=== PATIENT | male | born 1965 | race Caucasian/White ===

== ENCOUNTER 2025-07-31 20:06 | Emergency (ER) | payer BC, SELFPAY ==
[2025-07-31] VITALS (10 sets, daily range): BP systolic 190–256; BP diastolic 96–127; PULSE 67–86; RESP 16–17; TEMP 36.6–36.8; O2SAT 94–98; BMI 32.4
--- NOTE | 2025-07-31 20:18 | EKG12_ITS ---
Test Reason : DYSRHYTHMIA Blood Pressure : */* mmHG Vent. Rate : 75 BPM Atrial Rate : 75 BPM P-R Int : 144 ms QRS Dur : 92 ms QT Int : 396 ms P-R-T Axes : 37 5 74 degrees QTcB Int : 442 ms Normal sinus rhythm Normal ECG Confirmed by ANDRAE CUETO, BETINA ([id number]), map editor LESLYE CALIX ([id number]) on 08/01/2025 9:20:04 AM Referred By: NGA Confirmed By: BETINA ABEBE MD
--- NOTE | 2025-07-31 20:18 | CT_ITS ---
PROCEDURE: CT BRAIN/HEAD WITHOUT CONTRAST 07/31/2025 REASON FOR EXAM: CONFUSION, HYPERTENSION TECHNIQUE: Procedure Code: CTBR Modality: CT Procedure: BRAIN/HEAD WITHOUT CONTRAST Coronal and Sagittal reconstruction series were provided. One or more dose reduction techniques were used (e.g., Automated exposure control, adjustment of the mA and/or kV according to patient size, use of iterative reconstruction technique. RADIATION DOSE SUMMARY: CTDlvol: 44.99 mGy DLP: 846.73 mGycm COMPARISON: None available. FINDINGS: Small area of acute intracranial hemorrhage within the right basal ganglia region, measuring approximately 24 x 15 x 9 mm. No substantial parenchymal edema or significant mass-effect. No evidence of acute intracranial hemorrhage or extra-axial collection elsewhere. No evidence of acute large territorial infarct. Moderate-advanced chronic microangiopathic changes throughout the supratentorial white matter, and chronic infarct involving the inferior left cerebellar hemisphere. Atherosclerotic vascular calcifications. Grossly unremarkable orbits. Intact skull base and calvarium. Well-aerated paranasal sinuses and bilateral mastoid air cells. 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 No significant mass-effect. Moderate-advanced chronic microangiopathic changes in the supratentorial white matter, and old left cerebellar infarct. No acute appearing territorial infarct on this exam. Findings communicated with provider Dilan Bahena 07/31/2025 at 7:45 p.m. 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 Reading Location: [id number]
--- NOTE | 2025-07-31 20:20 | EX.ED.DYSGE1 ---
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 He states that he has been a lightheaded over the last few days and has not felt quite right. He denies any chest pain or shortness of breath, no nausea or vomiting, no headache. He was given a speech this evening, and medics were called because he appeared very confused and not quite the same. He was having problems concentrating and speaking. He was noted to have severely elevated blood pressure above 200 systolic. He denies any history of hypertension, no exacerbating or alleviating factors. No headache. [facility] Medical History History of ear infection Home Medications Medication Instructions Recorded Last Taken Type NK 07/31/25 Unknown History Allergy/AdvReac Type Severity Reaction Status Date / Time Penicillins Allergy Hives Verified 07/31/25 20:11 Social History Smoking Status: Never smoker ROS ROS ED ROS Narrative Review of systems positive for lightheadedness, and confusion with problems concentrating. Denies chest pain, shortness of breath, headache, leg swelling, or any other symptoms. EXAM Physical Exam Narrative Exam Narrative: Afebrile. Vital signs noted. Blood pressures of 256/120 and 250/127. Cardiovascular examination regular rate and rhythm. Lungs clear to auscultation bilaterally. Abdomen is soft and nontender with positive bowel sounds, no guarding or rebound. Neurological examination is nonfocal, nonlateralizing. Awake, alert, oriented x 3. No pronator drift. Moves all extremities. No visual deficit. S Van negative. NIH stroke scale 0. Const Vital Signs: 07/31/25 20:07 07/31/25 20:08 07/31/25 20:38 Temperature 98.3 F Temperature Source Oral Pulse Rate 86 67 Respiratory Rate 16 16 Blood Pressure 256/120 H 250/127 H 228/110 H Blood Pressure Mean 165 168 149 Blood Pressure Source Pulse Ox 98 96 Oxygen Delivery Method Room Air Room Air 07/31/25 20:46 07/31/25 20:53 07/31/25 21:00 Temperature Temperature Source Pulse Rate 82 69 Respiratory Rate 17 16 Blood Pressure 228/110 H 210/102 H Blood Pressure Mean 149 138 Blood Pressure Source Pulse Ox 97 94 94 Oxygen Delivery Method Room Air Room Air Room Air 07/31/25 21:08 07/31/25 21:11 Temperature Temperature Source Pulse Rate 70 68 Respiratory Rate 16 16 Blood Pressure 190/96 H 190/96 H Blood Pressure Mean 127 127 Blood Pressure Source Monitor Pulse Ox 95 95 Oxygen Delivery Method Room Air Room Air MDM MDM MDM Narrative Medical decision making narrative: The differential diagnosis includes but not limited to hypertensive urgency versus emergency versus stroke. However given his NIH stroke scale of 0, it was not felt that stroke team needed to be initiated, and it was not initiated by EMS as well. I have low suspicion for ischemic stroke based on his clinical presentation. Also in the differential is intracranial hemorrhage from hypertension. However, with his systolic being above 250, concern is for hypertensive emergency causing his confusion and lightheadedness and possible hemorrhage. CT of the brain will be obtained as well as basic laboratory work and EKG including troponins. He was started on a Cardene drip because of the excessively high blood pressure. He was told that he will require observation versus admission for this depending on blood pressure control. EKG obtained and interpreted by myself independently as normal sinus rhythm at 75 bpm without ectopy or acute ST changes. No STEMI. I reviewed his laboratory work and he has normal white count of 6.7 with hemoglobin 15.7, hematocrit 46.9, platelet count normal at 265. BMP shows BUN of 27 with creatinine normal at 1.18, normal sodium and potassium. LFTs are grossly unremarkable. High-sensitivity troponin 14. On review of the CT of the brain, I see an intraparenchymal hemorrhage on the right. I received a call from the radiologist regarding this. There is hypertensive intraparenchymal hemorrhage in the basal ganglia. Upon repeat examination, patient had told his that his right leg felt heavy. However, he still has full range of motion of his right lower extremity. Given his intraparenchymal hypertensive bleeding, patient request to be transferred to [facility]. I discussed the patient with critical care transfer line. Goal for systolic blood pressure per protocol is 140 or below. I discussed the patient with the [facility] transfer line and was triage through [facility] neurosurgery initially. They state that the patient is able to go to the closest hospital and his preference. I then discussed the patient with the critical care transport line and [facility] Provider. He has been accepted by Dr. Nikolai Marvin in the critical care unit. Patient's neurological examination remains nonfocal and nonlateralizing. As the patient has been accepted, critical care transport through [facility] Is an hour out. There is a local squad available here. They are not activating transportation via air secondary to weather conditions. At this point in time, patient will be transferred in guarded condition. History & Record Review Discussion w/independent historian: EMS personnel and Patient Additional record(s) reviewed:: Prior ED visit (Last ED visit 2014) Lab Data Attestation: I reviewed the patient's lab results. Labs: Laboratory Results - last 24 hr 07/31/25 07/31/25 20:15 20:18 WBC 6.7 RBC 5.34 Hgb 15.7 Hct 46.9 MCV 87.8 MCH 29.4 MCHC 33.5 RDW Std Deviation 41.5 RDW Coeff of Cecilia 13.0 Plt Count 265 MPV 9.8 Immature Gran % (Auto) 0.100 Neut % (Auto) 63.1 Lymph % (Auto) 25.2 [place] % (Auto) 10.3 H Eos % (Auto) 0.4 Baso % (Auto) 0.9 Absolute Neuts (auto) 4.2 Absolute Lymphs (auto) 1.68 Nucleated RBC % 0 Sodium 140 Potassium 3.8 Chloride 102 Carbon Dioxide 25.3 Anion Gap 12 BUN 27 H Creatinine 1.18 Estim Creat Clear Calc 77.02 Est GFR (MDRD) Non-Af 72 BUN/Creatinine Ratio 22.6 H Glucose 100 H Calcium 9.4 Total Bilirubin 0.67 AST 25 ALT 26 Alkaline Phosphatase 56 Troponin T High Sens 14 Total Protein 8.0 Albumin 4.6 Globulin 3.4 Albumin/Globulin Ratio 1.4 Radiography Diagnostic Testing: Clinical Impression(s) from Imaging Studies Brain CT 07/31/25 20:18 IMPRESSION: Small acute intracranial hemorrhage within the right basal ganglia, 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 No significant mass-effect. Moderate-advanced chronic microangiopathic changes in the supratentorial white matter, and old left cerebellar infarct. No acute appearing territorial infarct on this exam. Findings communicated with provider Dilan Bahena 07/31/2025 at 7:45 p.m. 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 Reading Location: [id number] Management Discussion w/another healthcare provider: Supervisor Aircraft Cleaning ([facility] neurosurgery, [facility] Critical care provider) and Radiologist Critical Care Time Critical Care Time: Yes Critical care time (excluding procedures): 30-74 minutes (32), Including time spent:, Discussing w/Patient &/or Family/Junior Accounting Clerk, Discussing w/Consultants, Arranging Admission or Transfer and Performing Direct Patient Care at Bedside Discharge Plan Triage Chief Complaint: Neuro S/Sx ED Provider: Dilan Bahena Dx/Rx/DC Orders Clinical Impression: Nontraumatic intraparenchymal hemorrhage of brain, Hypertensive emergency, Confusion Prescriptions: No Action NK Primary Care Provider: Care Physician,No Primary Referrals: Care Physician,No Primary [Primary Care Provider, Medical] Print Language: [place]
[2025-07-31 20:39] LABS: Hematocrit 46.9 % (40-54); Hemoglobin 15.7 g/dL (13.0-16.5); Immature Granulocytes Count 0.010 X10^3/uL (0.0-0.0); Mean Corp Hgb Conc 33.5 g/dL (32-36); Mean Corpuscular Volume 87.8 fL (80-94); Mean Platelet Vol. 9.8 fl (6.2-12.0); NRBC Flagged by Analyzer 0 % (0-5); Platelet Count 265 K/mm3 (150-450); RBC Distribution Width CV 13.0 % (11.6-14.6); RBC Distribution Width SD 41.5 fl (35.1-43.9); Red Blood Count 5.34 M/mm3 (4.6-6.2); White Blood Count 6.7 K/mm3 (4.4-11.0)
--- OUTSIDE RECORDS SUMMARY | 2025-07-31 20:44 | XMS RPT_ITS | CCD ---
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 Name Role Phone Leeanne Hoang LPN Unavailable Unavailab desire VALENZUELA, Hugo Keys Unavailable Satinder Rizvi Attending Unavailable Care Physician, No Primary Referring Unava ilable Care Physician, No Primary Primary Care Unava ilable Satinder Rizvi Attending Unavailable Care Physician, No Primary Referring Unava ilable Care Physician, No Primary Primary Care Unava ilable Assessment, Health Risk Attending Unavaila ble Care Physician, No Primary Primary Care Unava ilable Assessment, Health Risk Referring Unavaila ble Satinder Rizvi Attending Unavailable Care Physician, No Primary Referring Unava ilable Care Physician, No Primary Primary Care Unava ilable Hugo Oliveros Attending Unavailable Care Physician, No Primary Referring Unava ilable Care Physician, No Primary Primary Care Unava ilable Satinder Rizvi Attending Unavailable Care Physician, No Primary Referring Unava ilable Care Physician, No Primary Primary Care Unava ilable Allergies Allergy Classification Reported Allergen(s) Allergy Type Date of Onset Reaction(s) Facility (2 sources) penicillin Drug Allergy 01-26-2011 rash [facility] Work Phone: Problems Problem Classification Problem Date Documented Date Episodic/Chronic Administrative/social admission (2 sources) Encounter for other administrative examinations; Translations: [Encounter for other administrative examinations] Onset: 10-13-2021 Episodic Disorders of lipid metabolism (2 sources) Hyperlipidemia; Translations: [Hyperlipidemia, unspecified] Onset: 05-10-2012 05-10-2012 Chronic Essential hypertension (2 sources) Labile hypertension; Translations: [Elevated blood-pressure reading, without diagnosis of hypertension] Onset: 05-10-2012 05-10-2012 Chronic Unclassified (2 sources) Adult health examination ; Translations: [Encounter for general adult medical examination without abnormal findings] Onset: 07-05-2017 07-05-2017 Unclassified (2 sources) General examination of patient ; Translations: [Encounter for other general examination] Onset: 05-10-2012 05-10-2012 Results Test Name Value Interpretation Reference Range Facility Urgent Care Visit Reporton 0 10-12-2022 Urgent Care Visit Report [facility] [address] [place] [address] [address] [place] [address] OFFICE VISIT Date of Service: 10/12/22 MR#: [id number] Acct: [id number] Name: NEEMA CAR Rep #: [id number] : 1965 Provider: NICOLAS sanchez Age/Sex: 57/M Location: [facility] Status: Signed Intake Intake Visit Reasons: WFD PHYSICAL Allergies No Known Allergies Allergy (Verified 04/21/15 17:15) PFSH Social History (Updated 11/18/20 @ 10:46 by NICOLAS Aguillon) Smoking Status: Unknown if ever smoked HPI HPI Details: NEEMA CAR, is a 57 M who presents to the office today for Office Procedures Physical Exam Coding PE Coding Sports/School Physical: No DOT PE: No Pre-employment PE: No Additional Details: 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 Coding Level of Care Code No Charge Diagnoses Encounter for 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 Z02.89 Assessment and Plan Assessment and Plan (1) Encounter for 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: Status: Acute 10/12/22 1057 Date Satinder VALENZUELA Cosignmarina Signature: Date (if applicable) CC: Normal [facility] CBC W/Diff, Automatedon 11-0 Absolute Lymph 0.99 X10 3/uL Normal 0.83-4.51 [facility] Comment on above: Performed By: #### L 501.9910, L500.4050, L400.2010, L100.0100, L500.4100 #### [facility] [address] [place], [address] Absolute Neut 2.8 X10 3/uL Normal 2.0-7.7 [facility] Comment on above: Performed By: #### L 501.9910, L500.4050, L4.2010, L100.0100, L500.4100 #### [facility] [address] [place], [address] Basophils/100 WBC (Bld) 0.9 % Normal 0-1 [facility] Comment on above: Performed By: #### L 501.9910, L500.4050, L400.2010, L100.0100, L500.4100 #### [facility] [address] [place], [address] Eosinophils/100 WBC (Bld) 1.8 % Normal 0-5 [facility] Comment on above: Performed By: #### L 501.9910, L500.4050, L4, L100.0100, L500.4100 #### [facility] [address] [place], [address] Erythrocyte distribution width (RBC) [Ratio] 13.2 % Normal 11.6-14.6 [facility] Comment on above: Performed By: #### L 501.9910, L500.4050, L400.2010, L100.0100, L500.4100 #### [facility] [address] [place], [address] Hematocrit (Bld) [Volume fraction] 47.6 % Normal 40-54 [facility] Comment on above: Performed By: #### L 501.9910, L500.4050, L4, L100.0100, L500.4100 #### [facility] [address] [place], [address] Hemoglobin (Bld) [Mass/Vol] 16.1 g/dL Normal 13.0-16.5 [facility] Comment on above: Performed By: #### L 501.9910, L500.4050, L400.2010, L100.0100, L500.4100 #### [facility] [address] [place], [address] IG% 0.200 Normal 0.0-0.9 [facility] Comment on above: Result Comment: IG% - Immature Granulocytes (promyelocytes, myelocytes and metamyelocytes) > 1% indicates that a LEFT SHIFT is Present. Performed By: #### L 501.9910, L500.4050, L400.2010, L100.0100, L500.4100 #### [facility] [address] [place], [address] Lymphocytes/100 WBC (Bld) 22.7 % Normal 19-41 [facility] Comment on above: Performed By: #### L 501.9910, L500.4050, L400.2010, L100.0100, L500.4100 #### [facility] [address] [place], [address] MCH (RBC) [Entitic mass] 29.9 pg Normal 27.0-32.0 [facility] Comment on above: Performed By: #### L 501.9910, L500.4050, L400.2010, L100.0100, L500.4100 #### [facility] [address] [place], [address] MCHC (RBC) [Mass/Vol] 33.8 g/dL Normal 32-36 [facility] Comment on above: Performed By: #### L 501.9910, L500.4050, L400.2010, L100.0100, L500.4100 #### [facility] [address] [place], [address] MCV (RBC) [Entitic vol] 88.5 fL Normal 80-94 [facility] Comment on above: Performed By: #### L 501.9910, L500.4050, L400.2010, L100.0100, L500.4100 #### [facility] [address] [place], [address] Monocytes/100 WBC (Bld) 11.2 % High 0-10 [facility] Comment on above: Performed By: #### L 501.9910, L500.4050, L400.2010, L100.0100, L500.4100 #### [facility] [address] [place], [address] Neutrophils/100 WBC (Bld) 63.2 % Normal 47-70 [facility] Comment on above: Performed By: #### L 501.9910, L500.4050, L400.2010, L100.0100, L500.4100 #### [facility] [address] [place], [address] Nucleated RBC (Bld) [#/Vol] 0 10*3/uL Normal 0-5 [facility] Comment on above: Performed By: #### L 501.9910, L500.4050, L400.2010, L100.0100, L500.4100 #### [facility] [address] [place], [address] Platelet mean volume (Bld) [Entitic vol] 9.2 fL Normal 6.2-12.0 [facility] Comment on above: Performed By: #### L 501.9910, L500.4050, L400.2010, L100.0100, L500.4100 #### [facility] [address] [place], [address] Platelets (Bld) [#/Vol] 244 10*3/uL Normal 150-450 [facility] Comment on above: Performed By: #### L 501.9910, L500.4050, L400.2010, L100.0100, L500.4100 #### [facility] [address] [place], [address] RBC (Bld) [#/Vol] 5.38 10*6/uL Normal 4.6-6.2 [facility] Comment on above: Performed By: #### L 501.9910, L500.4050, L400.2010, L100.0100, L500.4100 #### [facility] [address] [place], [address] RDW SD 43.1 fl Normal 35.1-43.9 [facility] Comment on above: Performed By: #### L 501.9910, L500.4050, L400.2010, L100.0100, L500.4100 #### [facility] [address] [place], [address] WBC (Bld) [#/Vol] 4.4 10*3/uL Normal 4.4-11.0 [facility] Comment on above: Performed By: #### L 501.9910, L500.4050, L400.2010, L100.0100, L500.4100 #### [facility] [address] [place], [address] Comprehensive Metabolic Prof [facility] 07-10-2022 Albumin [Mass/Vol] 4.1 g/dL Normal 3.2-5.0 [facility] Comment on above: Performed By: #### L 501.9910, L500.4050, L400.2010, L100.0100, L500.4100 #### [facility] [address] [place], [address] Albumin/Globulin [Mass ratio] 0.9 {ratio} Normal 0.9-2.4 [facility] Comment on above: Performed By: #### L 501.9910, L500.4050, L4, L100.0100, L500.4100 #### [facility] [address] [place], [address] ALK P 64 U/L Normal 45-117 [facility] Comment on above: Performed By: #### L 501.9910, L500.4050, L4, L100.0100, L500.4100 #### [facility] [address] [place], [address] ALT [Catalytic activity/Vol] 36 U/L Normal 16-61 [facility] Comment on above: Performed By: #### L 501.9910, L500.4050, L4, L100.0100, L500.4100 #### [facility] [address] [place], [address] AST [Catalytic activity/Vol] 21 U/L Normal 15-37 [facility] Comment on above: Performed By: #### L 501.9910, L500.4050, L4, L100.0100, L500.4100 #### [facility] [address] [place], [address] Bilirubin [Mass/Vol] 0.60 mg/dL Normal 0.20-1.00 [facility] Comment on above: Result Comment: For patients on eltrombopag therapy, use of Dimension [place] TBIL is not recommended. Performed By: #### L 501.9910, L500.4050, L4, L100.0100, L500.4100 #### [facility] [address] [place], [address] BUN/CRE 19.6 RATIO Normal 10-20 [facility] Comment on above: Performed By: #### L 501.9910, L500.4050, L4, L100.0100, L500.4100 #### [facility] [address] [place], [address] CA,Total 9.6 mg/dL Normal 8.5-10.1 [facility] Comment on above: Performed By: #### L 501.9910, L500.4050, L4, L100.0100, L500.4100 #### [facility] [address] [place], [address] Chloride [Moles/Vol] 103 mmol/L Normal 98-107 [facility] Comment on above: Performed By: #### L 501.9910, L500.4050, L4, L100.0100, L500.4100 #### [facility] [address] [place], [address] CO2 [Moles/Vol] 27.0 mmol/L Normal 21.0-32.0 [facility] Comment on above: Performed By: #### L 501.9910, L500.4050, L4, L100.0100, L500.4100 #### [facility] [address] [place], [address] Creatinine [Mass/Vol] 1.07 mg/dL Normal 0.70-1.30 [facility] Comment on above: Result Comment: The validity of the calculated GFR GFRAA in patients over 70 years has not been determined. Clinical correlation is essential. Performed By: #### L 501.9910, L500.4050, L400, L100.0100, L500.4100 #### [facility] [address] [place], [address] EST GFR - AA 92 mL/min Normal >60 [facility] Comment on above: Result Comment: Afri can Syrian GFR Calc Performed By: #### L 501.9910, L500.4050, L4, L100.0100, L500.4100 #### [facility] [address] [place], [address] GAP 8 Normal 5-15 [facility] Comment on above: Performed By: #### L 501.9910, L500.4050, L400.2010, L100.0100, L500.4100 #### [facility] [address] [place], [address] GFR/1.73 sq M.predicted among non-blacks MDRD (S/P/Bld) [Vol rate/Area] 76 mL/min/{1.73_m2} Normal >60 [facility] Comment on above: Result Comment: Non- GFR Calc Performed By: #### L 501.9910, L500.4050, L4, L100.0100, L500.4100 #### [facility] [address] [place], [address] Globulin (S) [Mass/Vol] 4.4 g/dL High 2.2-4.2 [facility] Comment on above: Performed By: #### L 501.9910, L500.4050, L4, L100.0100, L500.4100 #### [facility] [address] [place], [address] Glucose [Mass/Vol] 117 mg/dL High 74-106 [facility] Comment on above: Result Comment: Fast ing Glucose result from 100 to 125 mg/dL suggests IMPAIRED HOMEOSTASIS per A.D.A. criteria. Performed By: #### L 501.9910, L500.4050, L400.2010, L100.0100, L500.4100 #### [facility] [address] [place], [address] Potassium [Moles/Vol] 4.2 mmol/L Normal 3.5-5.1 [facility] Comment on above: Performed By: #### L 501.9910, L500.4050, L400.2010, L100.0100, L500.4100 #### [facility] [address] [place], [address] Sodium [Moles/Vol] 138 mmol/L Normal 136-145 [facility] Comment on above: Performed By: #### L 501.9910, L500.4050, L400.2010, L100.0100, L500.4100 #### [facility] [address] [place], [address] T PROT 8.5 g/dL High 6.4-8.2 [facility] Comment on above: Performed By: #### L 501.9910, L500.4050, L400.2010, L100.0100, L500.4100 #### [facility] [address] [place], [address] Urea nitrogen [Mass/Vol] 21 mg/dL High 7-18 [facility] Comment on above: Performed By: #### L 501.9910, L500.4050, L400.2010, L100.0100, L500.4100 #### [facility] [address] [place], [address] Lipid Profileon 07-10-2022 Cholesterol [Mass/Vol] 250 mg/dL High 200 [facility] Comment on above: Result Comment: <200 mg/dL Desirable 200-240 mg/dL Borderline >240 mg/dL High Risk Performed By: #### L 501.9910, L500.4050, L400.2010, L100.0100, L500.4100 #### [facility] [address] [place], [address] Cholesterol in HDL [Mass/Vol] 52 mg/dL Normal [facility] Comment on above: Result Comment: The drugs N-Acetylcysteine and Metamizole may falsely depress this assay. Reference Range HDL <40 mg/dL Low HDL Cholesterol HDL >or= 60 mg/dL High HDL Cholesterol Performed By: #### L 501.9910, L500.4050, L400.2010, L100.0100, L500.4100 #### [facility] [address] [place], [address] Cholesterol in LDL [Mass/Vol] 177 mg/dL High 0-130 [facility] Comment on above: Performed By: #### L 501.9910, L500.4050, L400.2010, L100.0100, L500.4100 #### [facility] [address] [place], [address] Cholesterol in VLDL [Mass/Vol] 21 mg/dL Normal 5-40 [facility] Comment on above: Performed By: #### L 501.9910, L500.4050, L400.2010, L100.0100, L500.4100 #### [facility] [address] [place], [address] Triglyceride [Mass/Vol] 105 mg/dL Normal [facility] Comment on above: Result Comment: The drugs N-Acetylcysteine and Metamizole may falsely depress this assay. Serum Triglycerides Reference Interval Normal <150 mg/dL Borderline high 150 - 199 mg/dL High 200 - 499 mg/dL Very High > or = 500 mg/dL Performed By: #### L 501.9910, L500.4050, L400.2010, L100.0100, L500.4100 #### [facility] [address] [place], [address] Office Visit Reporton 2021 Office Visit Report [facility] [address] [place] [address] OFFICE VISIT Date of Service: 07/10/22 MR#: [id number] Acct: [id number] Patient: NEEMA CAR Rep #: [id number] : 1965 Provider: NICOLAS Oliveros Age/Sex: 57/M Location: [facility] Status: Signed Intake Vital Signs 07/10/22 07:53 Height 5 ft 8 in Weight: 212 lb BMI 32.2 BP 220/120 H Blood Pressure Location Lt brachial Position Sitting Respiration 15 Pulse 84 Pulse Source Monitor Temp 98.7 F Temp Source Temporal Pulse Oximetry (%) 98 Oxygen Delivery Method room air Intake Visit Reasons: WFD. EKG, [place] Allergies No Known Allergies Allergy (Verified 04/21/15 17:15) Office Procedures PPD Procedure TB Med Used: Tuberculin PPD 5 tub. unit/0.1 mL intradermal injection solution was administered Lot number: [id number] Ship Engineer: SANOFI PASTEUR date: 02/08/23 PPD Location: Left forearm Date PPD Placed: 07/10/22 Time PPD Placed: 08:30 PPD Placed By: Maite Chance 07/10/22 1346 Date Hugo Engle Signature: Date (if applicable) CC: Normal [facility] PSA,Total - Annual Screenon 07-10-2022 PSA,TOT SCREEN 0.90 ng/mL Normal 0.00-4.00 [facility] Comment on above: Result Comment: This test was performed using the TPSA assay method for the [employer] chemistry system. Values obtained with different assay methods cannot be used interchangably. When changing PSA assays in the course of monitoring a patient, additional sequential testing should be carried out to confirm baseline values. Performed By: #### L 501.9910, L500.4050, L400.2010, L100.0100, L500.4100 #### [facility] [address] [place], [address] Urinalysis, Routine (Dipstic k)on 07-10-2022 BILIRUBIN URINE Negative Normal Negative [facility] Comment on above: Order Comment: CLEAN CATCH Performed By: #### L 501.9910, L500.4050, L400.2010, L100.0100, L500.4100 #### [facility] [address] [place], [address] Clarity (U) Clear Normal Clear [facility] Comment on above: Order Comment: CLEAN CATCH Performed By: #### L 501.9910, L500.4050, L400.2010, L100.0100, L500.4100 #### [facility] [address] [place], [address] Color (U) Yellow Normal Yellow [facility] Comment on above: Order Comment: CLEAN CATCH Performed By: #### L 501.9910, L500.4050, L400.2010, L100.0100, L500.4100 #### [facility] [address] [place], [address] GLUCOSE, UR Normal Normal Normal [facility] Comment on above: Order Comment: CLEAN CATCH Performed By: #### L 501.9910, L500.4050, L400.2010, L100.0100, L500.4100 #### [facility] [address] [place], [address] KETONE UR Negative Normal Negative [facility] Comment on above: Order Comment: CLEAN CATCH Performed By: #### L 501.9910, L500.4050, L400.2010, L100.0100, L500.4100 #### [facility] [address] [place], [address] LEUK ESTERASE Negative Normal Negative [facility] Comment on above: Order Comment: CLEAN CATCH Performed By: #### L 501.9910, L500.4050, L400.2010, L100.0100, L500.4100 #### [facility] [address] [place], [address] Nitrite Ql (U) Negative Normal Negative [facility] Comment on above: Order Comment: CLEAN CATCH Performed By: #### L 501.9910, L500.4050, L400.2010, L100.0100, L500.4100 #### [facility] [address] [place], [address] OCCULT BLOOD-UR 25 /ul Abnormal Negative [facility] Comment on above: Order Comment: CLEAN CATCH Performed By: #### L 501.9910, L500.4050, L400.2010, L100.0100, L500.4100 #### [facility] [address] [place], [address] pH UR 6.0 Normal 5.0 - 8.0 [facility] Comment on above: Order Comment: CLEAN CATCH Performed By: #### L 501.9910, L500.4050, L400.2010, L100.0100, L500.4100 #### [facility] [address] [place], [address] PROT DIPSTX Negative Normal Negative [facility] Comment on above: Order Comment: CLEAN CATCH Performed By: #### L 501.9910, L500.4050, L400.2010, L100.0100, L500.4100 #### [facility] [address] [place], [address] SP.GR. DIPSTX 1.020 Normal 1.002-1.030 [facility] Comment on above: Order Comment: CLEAN CATCH Performed By: #### L 501.9910, L500.4050, L400.2010, L100.0100, L500.4100 #### [facility] [address] [place], [address] UROBILI Normal Normal Normal [facility] Comment on above: Order Comment: CLEAN CATCH Performed By: #### L 501.9910, L500.4050, L400.2010, L100.0100, L500.4100 #### [facility] [address] [place], [address] Stool Occult Blood iFOBon STOB Normal Reference Range = Negative Immunochemical Fecal Occult Blood (iFOBT) method. Hemoccult Stl Ql IA Limitation: Menstral bleeding, constipation bleeding, bleeding hemorrhoids, and urinary bleeding conditions may interfere with test. Occult Blood Negative Normal [facility] Comment on above: Performed By: #### L 500.4050, L500.4100, M100.7900, L100.0100, L400.2010 ####[facility] [address] [place], [address] CBC W/Diff, Automatedon 06-06 Absolute Neut Normal 2.0-7.7 [facility] Comment on above: Result Comment: NO S HOW Performed By: #### L 500.4050, L500.4100, M100.7900, L100.0100, L400.2010 ####[facility] [address] [place], [address] HCT Normal 40-54 [facility] [facility] Comment on above: Result Comment: NO S HOW Performed By: #### L 500.4050, L500.4100, M100.7900, L100.0100, L400.2010 ####[facility] [address] [place], [address] HGB Normal 13.0-16.5 [facility] Comment on above: Result Comment: NO S HOW Performed By: #### L 500.4050, L500.4100, M100.7900, L100.0100, L400.2010 ####[facility] [address] [place], [address] MCH Normal 27.0-32.0 [facility] Comment on above: Result Comment: NO S HOW Performed By: #### L 500.4050, L500.4100, M100.7900, L100.0100, L400.2010 ####[facility] [address] [place], [address] MCHC Normal 32-36 [facility] Comment on above: Result Comment: NO S HOW Performed By: #### L 500.4050, L500.4100, M100.7900, L100.0100, L400.2010 ####[facility] [address] [place], [address] MCV Normal 80-94 [facility] Comment on above: Result Comment: NO S HOW Performed By: #### L 500.4050, L500.4100, M100.7900, L100.0100, L400.2010 ####[facility] [address] [place], [address] NEUT% Normal 47-70 [facility] Comment on above: Result Comment: NO S HOW Performed By: #### L 500.4050, L500.4100, M100.7900, L100.0100, L400.2010 ####[facility] [address] [place], [address] PLT Normal 150-450 [facility] Comment on above: Result Comment: NO S HOW Performed By: #### L 500.4050, L500.4100, M100.7900, L100.0100, L400.2010 ####[facility] [address] [place], [address] RBC Normal 4.6-6.2 [facility] Comment on above: Result Comment: NO S HOW Performed By: #### L 500.4050, L500.4100, M100.7900, L100.0100, L400.2010 ####[facility] [address] [place], [address] RDW CV Normal 11.6-14.6 [facility] Comment on above: Result Comment: NO S HOW Performed By: #### L 500.4050, L500.4100, M100.7900, L100.0100, L400.2010 ####[facility] [address] [place], [address] RDW SD Normal 35.1-43.9 [facility] Comment on above: Result Comment: NO S HOW Performed By: #### L 500.4050, L500.4100, M100.7900, L100.0100, L400.2010 ####[facility] [address] [place], [address] WBC Normal 4.4-11.0 [facility] Comment on above: Result Comment: NO S HOW Performed By: #### L 500.4050, L500.4100, M100.7900, L100.0100, L400.2010 ####[facility] [address] [place], [address] Comprehensive Metabolic Prof ilon 06-22-2022 ALB Normal 3.2-5.0 [facility] Comment on above: Result Comment: NO S HOW Performed By: #### L 500.4050, L500.4100, M100.7900, L100.0100, L400.2010 #### [facility] [address] [place], [address] ALK P Normal 45-117 [facility] Comment on above: Result Comment: NO S HOW Performed By: #### L 500.4050, L500.4100, M100.7900, L100.0100, L400.2010 #### [facility] [address] [place], [address] ALT Normal 16-61 [facility] Comment on above: Result Comment: NO S HOW Performed By: #### L 500.4050, L500.4100, M100.7900, L100.0100, L400.2010 #### [facility] [address] [place], [address] AST Normal 15-37 [facility] Comment on above: Result Comment: NO S HOW Performed By: #### L 500.4050, L500.4100, M100.7900, L100.0100, L400.2010 #### [facility] [address] [place], [address] BUN Normal 7-18 [facility] Comment on above: Result Comment: NO S HOW Performed By: #### L 500.4050, L500.4100, M100.7900, L100.0100, L400.2010 #### [facility] [address] [place], [address] BUN/CRE Normal 10-20 [facility] Comment on above: Result Comment: NO S HOW Performed By: #### L 500.4050, L500.4100, M100.7900, L100.0100, L400.2010 #### [facility] [address] [place], [address] CA,Total Normal 8.5-10.1 [facility] Comment on above: Result Comment: NO S HOW Performed By: #### L 500.4050, L500.4100, M100.7900, L100.0100, L400.2010 #### [facility] [address] [place], [address] CL Normal 98-107 [facility] Comment on above: Result Comment: NO S HOW Performed By: #### L 500.4050, L500.4100, M100.7900, L100.0100, L400.2010 #### [facility] [address] [place], [address] CO2 Normal 21.0-32.0 [facility] Comment on above: Result Comment: NO S HOW Performed By: #### L 500.4050, L500.4100, M100.7900, L100.0100, L400.2010 #### [facility] [address] [place], [address] CREAT,SERUM Normal 0.70-1.30 [facility] Comment on above: Result Comment: NO S HOW Performed By: #### L 500.4050, L500.4100, M100.7900, L100.0100, L400.2010 #### [facility] [address] [place], [address] EST GFR Normal >60 [facility] Comment on above: Result Comment: NO S HOW Performed By: #### L 500.4050, L500.4100, M100.7900, L100.0100, L400.2010 #### [facility] [address] [place], [address] EST GFR - AA Normal >60 [facility] Comment on above: Result Comment: NO S HOW Performed By: #### L 500.4050, L500.4100, M100.7900, L100.0100, L400.2010 #### [facility] [address] [place], [address] GAP Normal 5-15 [facility] Comment on above: Result Comment: NO S HOW Performed By: #### L 500.4050, L500.4100, M100.7900, L100.0100, L400.2010 #### [facility] [address] [place], [address] GLU Normal 74-106 [facility] Comment on above: Result Comment: NO S HOW Performed By: #### L 500.4050, L500.4100, M100.7900, L100.0100, L400.2010 #### [facility] [address] [place], [address] Potassium Normal 3.5-5.1 [facility] Comment on above: Result Comment: NO S HOW Performed By: #### L 500.4050, L500.4100, M100.7900, L100.0100, L400.2010 #### [facility] [address] [place], [address] T BILI Normal 0.20-1.00 [facility] Comment on above: Result Comment: NO S HOW Performed By: #### L 500.4050, L500.4100, M100.7900, L100.0100, L400.2010 #### [facility] [address] [place], [address] T PROT Normal 6.4-8.2 [facility] Comment on above: Result Comment: NO S HOW Performed By: #### L 500.4050, L500.4100, M100.7900, L100.0100, L400.2010 #### [facility] [address] [place], [address] Comprehensive Metabolic Profil Normal 136-145 [facility] Comment on above: Result Comment: NO S HOW Performed By: #### L 500.4050, L500.4100, M100.7900, L100.0100, L400.2010 #### [facility] [address] [place], [address] Lipid Profileon 06-22-2022 CHOL Normal 200 [facility] Comment on above: Result Comment: NO S HOW Performed By: #### L 500.4050, L500.4100, M100.7900, L100.0100, L400.2010 #### [facility] [address] [place], [address] HDL Normal [facility] Comment on above: Result Comment: NO S HOW Performed By: #### L 500.4050, L500.4100, M100.7900, L100.0100, L400.2010 #### [facility] [address] [place], [address] LDL Normal 0-130 [facility] Comment on above: Result Comment: NO S HOW Performed By: #### L 500.4050, L500.4100, M100.7900, L100.0100, L400.2010 #### [facility] [address] [place], [address] TRIG Normal [facility] Comment on above: Result Comment: NO S HOW Performed By: #### L 500.4050, L500.4100, M100.7900, L100.0100, L400.2010 #### [facility] [address] [place], [address] VLDL Normal 5-40 [facility] Comment on above: Result Comment: NO S HOW Performed By: #### L 500.4050, L500.4100, M100.7900, L100.0100, L400.2010 #### [facility] [address] [place], [address] Urinalysis, Routine (Dipstic k)on 06-22-2022 BILIRUBIN URINE Normal Negative [facility] Comment on above: Order Comment: CLEAN CATCH Result Comment: NO S HOW Performed By: #### L 500.4050, L500.4100, M100.7900, L100.0100, L400.2010 ####[facility] [address] [place], [address] Clarity (U) Normal Clear [facility] Comment on above: Order Comment: CLEAN CATCH Result Comment: NO S HOW Performed By: #### L 500.4050, L500.4100, M100.7900, L100.0100, L400.2010 ####[facility] [address] [place], [address] Color (U) Normal Yellow [facility] Comment on above: Order Comment: CLEAN CATCH Result Comment: NO S HOW Performed By: #### L 500.4050, L500.4100, M100.7900, L100.0100, L400.2010 ####[facility] [address] [place], [address] GLUCOSE, UR Normal Normal [facility] Comment on above: Order Comment: CLEAN CATCH Result Comment: NO S HOW Performed By: #### L 500.4050, L500.4100, M100.7900, L100.0100, L400.2010 ####[facility] [address] [place], [address] KETONE UR Normal Negative [facility] Comment on above: Order Comment: CLEAN CATCH Result Comment: NO S HOW Performed By: #### L 500.4050, L500.4100, M100.7900, L100.0100, L400.2010 ####[facility] [address] [place], [address] LEUK ESTERASE Normal Negative [facility] Comment on above: Order Comment: CLEAN CATCH Result Comment: NO S HOW Performed By: #### L 500.4050, L500.4100, M100.7900, L100.0100, L400.2010 ####[facility] [address] [place], [address] Nitrite Ql (U) Normal Negative [facility] Comment on above: Order Comment: CLEAN CATCH Result Comment: NO S HOW Performed By: #### L 500.4050, L500.4100, M100.7900, L100.0100, L400.2010 ####[facility] [address] [place], [address] OCCULT BLOOD-UR Normal Negative [facility] Comment on above: Order Comment: CLEAN CATCH Result Comment: NO S HOW Performed By: #### L 500.4050, L500.4100, M100.7900, L100.0100, L400.2010 ####[facility] [address] [place], [address] pH UR Normal 5.0 - 8.0 [facility] Comment on above: Order Comment: CLEAN CATCH Result Comment: NO S HOW Performed By: #### L 500.4050, L500.4100, M100.7900, L100.0100, L400.2010 ####[facility] [address] [place], [place], [address] PROT DIPSTX Normal Negative [facility] Comment on above: Order Comment: CLEAN CATCH Result Comment: NO S HOW Performed By: #### L 500.4050, L500.4100, M100.7900, L100.0100, L400.2010 ####[facility] [address] [place], [address] SP.GR. DIPSTX Normal 1.002-1.030 [facility] Comment on above: Order Comment: CLEAN CATCH Result Comment: NO S HOW Performed By: #### L 500.4050, L500.4100, M100.7900, L100.0100, L400.2010 ####[facility] [address] [place], [place], [address] UR Preservative Normal [facility] Comment on above: Order Comment: CLEAN CATCH Result Comment: NO S HOW Performed By: #### L 500.4050, L500.4100, M100.7900, L100.0100, L400.2010 ####[facility] [address] [place], [place], [address] UROBILI Normal Normal [facility] Comment on above: Order Comment: CLEAN CATCH Result Comment: NO S HOW Performed By: #### L 500.4050, L500.4100, M100.7900, L100.0100, L400.2010 ####[facility] [address] [place], [place], [address] Urgent Care Visit Reporton 0 - Urgent Care Visit Report [address] [place], [place] [address] OFFICE VISIT Date of Service: 10/13/21 MR#: [id number] Acct: [id number] Name: NEEMA CAR #: [id number] : 1965 Provider: NICOLAS sanchez Age/Sex: 56/M [place] [facility] Status: Signed Intake Intake Visit Reasons: WFD PHYSICAL Allergies No Known Allergies Allergy (Verified 04/21/15 17:15) [facility] Social History (Updated 11/18/20 @ 10:46 by Satinder VALENZUELA PA) Smoking Status: Unknown if ever smoked HPI HPI Details: NEEMA CAR, is a 56 M who presents to the office today for Office Procedures Physical Exam Coding PE Coding Sports/School Physical: No DOT PE: No Pre-employment PE: No Additional Details: 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 Coding Level of Care Code No Charge Diagnoses 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 for 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 Z02.89 Assessment and Plan Assessment and Plan (1) 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 for 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: Status: Acute Plan: See attached scanned rubber heel and sole press tender physical examination forms corresponding with today's date 10/13/2147 Date Satinder Bennettignmarina Signature: Date (if applicable) CC: Normal [facility] Office Visiton 05-10-2012 Documentation of current medications (procedure) Done Invalid Interpretation Code [facility] Work Phone: Office Visit: Quality [employer] ph ysicalon 02-24-2011 Documentation of current medications (procedure) T Invalid Interpretation Code [facility] Work Phone: [facility] None Detected ug/L Normal 0.0-14.9 [facility] No w Clinic Work Phone: Lab Report: BMPon 01-29-20 11 Calcium 9.5 mg/dL Normal 8.5-10.1 [facility] Work Phone: Chloride 100 mmol/L Normal 98-107 [facility] Work Phone: [phone] Creatinine 0.9 mg/dL Normal 0.8-1.3 [facility] Work Phone: [phone] Glucose mass conc 87 mg/dL Normal 70-110 [facility] Work Phone: [phone] Potassium molar conc 4.4 mmol/L Normal 3.5-5.1 [facility] Work Phone: [phone] Sodium 137 mmol/L Normal 136-145 [facility] Work Phone: [phone] Urea nitrogen 22 mg/dL High 7-18 [facility] Work Phone: [phone] [facility] Erythrocytes (RBC) 5.00 10*6/uL Normal 4.6-6.2 [facility] Work Phone: Hematocrit (HCT) 44.3 % Normal 40-54 [facility] Work Phone: [phone] Hemoglobin mass conc (Bld) 15.2 g/dL Normal 14.0-18.0 [facility] Work Phone: [phone] Platelets 213 10*3/mm3 Normal 150-450 [facility] Work Phone: [phone] WBC (Leukocytes) 4.5 10*3/uL Normal 4.4-11.0 [facility] Work Phone: [phone] Lab Report: LIP[facility]on 2010 Cholesterol 240 mg/dL High 200 [facility] Work Phone: [phone] HDL Cholesterol 37 mg/dL Low [facility] Work Phone: [phone] LDL Cholesterol 161 mg/dL High 0-130 [facility] Work Phone: [phone] Triglyceride 211 mg/dL High [facility] Work Phone: [phone] very low density lipoproteins 42 mg/dL High 5-40 [facility] Work Phone: Lab Report: LIParth 2010 Alanine aminotransferase (ALT) 34 U/L Normal 12-78 [facility] Work Phone: Albumin 4.1 g/dL Normal 3.4-5.0 [facility] Work Phone: Alkaline phosphatase (ALP) 59 U/L Normal 50-136 [facility] Work Phone: Aspartate aminotransferase (AST) 18 U/L Normal 15-37 [facility] Work Phone: Bilirubin (direct) 0.08 mg/dL Normal 0.00-0.30 [facility] No w Clinic Work Phone: Bilirubin (total) 0.30 mg/dL Normal 0.00-1.00 [facility] Work Phone: 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 CPHS never Invalid Interpretation Code [facility] Work Phone: Vital Signs Date Time Vital Sign Value Performing Clinician Latasha geronimo 07-09-2017 09:46-0400 BMI (Body Mass Index) 34.22 kg/m2 Leeanne Hoang YURI [facility] Clinic Work Phone: 07-09-2017 09:46-0400 BP Diastolic 110 mm[Hg] Leeanne Hoang YURI [facility] Work Phone: 07-09-2017 09:46-0400 BP Systolic 224 mm[Hg] Leeanne Hoang YURI [facility] Work Phone: 07-09-2017 09:46-0400 Height 171.45 cm Leeanne Hoang YURI [facility] Work Phone: 07-09-2017 09:46-0400 Pulse (Heart Rate) 84 /min Leeanne Hoang YURI [facility] Work Phone: 07-09-2017 09:46-0400 Weight 100.61 kg Leeanne Hoang YURI [facility] Work Phone: 05-10-2012 15:55-0400 BMI (Body Mass Index) 31.54 kg/m2 Hugo VALENZUELA [facility] Work Phone: 05-10-2012 15:55-0400 Body Temperature 97.9 [degF] Hugo VALENZUELA [facility] Work Phone: 05-10-2012 15:55-0400 BP Diastolic 100 mm[Hg] Hugo VALENZUELA [facility] Work Phone: 05-10-2012 15:55-0400 BP Systolic 189 mm[Hg] Hugo VALENZUELA [facility] Work Phone: 05-10-2012 15:55-0400 BSA (Body Surface Area) 2.12 m2 Hugo VALENZUELA [facility] Work Phone: 05-10-2012 15:55-0400 Pulse (Heart Rate) 81 /min Hugo VALENZUELA [facility] Work Phone: 05-10-2012 15:55-0400 Respiratory Rate 12 /min Hugo VALENZUELA [facility] Work Phone: 05-10-2012 15:55-0400 Weight 96.53 kg Hugo VALENZUELA [facility] Work Phone: 02-24-2011 09:54-0400 Height 175.26 cm Hugo VALENZUELA [facility] Work Phone: Encounters Encounter Date Encounter Type Care Provider Facility Start: 10-12-2022 End: 10-12-2022 ambulatory Satinder Rizvi [place]: 07-10-2022 End: 07-10-2022 ambulatory Health Risk Assessment Facility:[facility] Start: 10-13-2021 End: 10-13-2021 ambulatory Satinder Rizvi Facility:[facility] Procedures Date Procedure Procedure Detail Performing Clinician Start: 01-22-2011 End: 01-13-2013 Chest x-ray Teodoro De La Rosa MD Start: 01-22-2011 End: 01-13-2013 Electrocardiogram Teodoro De La Rosa MD Start: 01-22-2011 End: 01-13-2013 Pulmonary Fuction Test - complete Teodoro De La Rosa MD Plan of Treatment Date Care Activity Detail Author Start: 07-09-2017 End: 07-09-2017 Appointment Appointment [facility] Work Phone: Start: 07-05-2017 End: 07-05-2017 Chest x-ray X-Ray, Chest, PA & Lateral [facility] Work Phone: Start: 01-22-2011 End: 01-13-2013 Chest x-ray X-Ray, Chest, PA & Lateral [facility] Work Phone: Start: 01-22-2011 End: 01-13-2013 Electrocardiogram EKG [facility] Work Phone: Start: 01-22-2011 End: 01-13-2013 Pulmonary Fuction Test - complete Pulmonary Fuction Test - complete [facility] Work Phone: Payers Date Payer Category Payer Self-pay Unknown [id number] 2.16.8 [id number] Unknown [id number] 2.16.8 [id number] Unknown [id number] 2.16.8 [id number] Unknown [id number] 2.16.8 [id number] Unknown [id number] 2.16.8 [id number] Unknown [id number] 2.16.8 [id number] Summary Purpose Family History No Family History Records Found Advance Directives No Advanced Directives Records Found Additional Source Comments (unrecognized sect ion and content) No Status Records Found INFORMATION SOURCE (unrecogn ized section and content) DATE CREATED AUTHOR 10/12/2022 [facility] FOR RECORDS PERTAINING TO PATIENTS WHO ARE OR HAVE BEEN ENROLLED IN A CHEMICAL DEPENDENCY/SUBSTANCEABUSE PROGRAM, SOME INFORMATION MAY BE OMITTED. This clinical summary was aggregated from multiple sources. Caution should be exercised in using it in the provision of clinical care. This summary normalizes information from multiple sources, and as a consequence, information in this document may materially change the coding, format and clinical context of patient data. In addition, data may be omitted in some cases. CLINICAL DECISIONS SHOULD BE BASED ON THE PRIMARY CLINICAL RECORDS. [facility] [employer] [facility]. provides no warranty or guarantee of the accuracy or completeness of information in this document.
[2025-07-31 21:03] LABS: Troponin T High Sensitivity 14 ng/L (<=22)
[2025-07-31 21:05] LABS: AST(SGOT) 25 U/L (<=37); Alanine Aminotransfer ALT/SGPT 26 U/L (<=46); Albumin, Serum 4.6 g/dL (3.5-5.0); Alkaline Phosphatase 56 U/L (40-129); Anion Gap 12 (5-15); BUN 27 mg/dL (4-19); BUN/Creat Ratio 22.6 RATIO (10-20); Calcium,Total 9.4 mg/dL (7.6-11.0); Carbon Dioxide 25.3 mmol/L (21.0-32.0); Chloride 102 mmol/L (98-108); Estimated Creatinine Clearance 77.02 ml/min (50-250); Globulin 3.4 g/dL (2.2-4.2); Glucose 100 mg/dL (70-99); Potassium 3.8 mmol/L (3.3-5.1)
[2025-07-31] MEDS: Nicardipine HCl-0.9% Sod Chlor 20 MG/200 ML IV.SOLN 50 MG CONT INF (21:11)
== END 2025-07-31 21:31 | disposition short-term general hospital (02) ==
PROVIDERS: Emergency Provider Emergency Medicine; Visit Provider Emergency Medicine
DX: I61.8 Other nontraumatic intracerebral hemorrhage (principal); I16.1 Hypertensive emergency; R41.0 Disorientation, unspecified; R29.700 NIHSS score 0
CPT/HCPCS: 70450; 80053; 84484; 85025; 93005; 96365; 96375; 99285; A4216